=== PATIENT | female | born 1965 | race Caucasian/White ===

== ENCOUNTER 2023-12-13 08:41 | Emergency (ER) | payer OTHER ==
[~2023-12-13] VITALS: Ht 167.6 cm; Wt 68.2 kg
[2023-12-13] MEDS ORDERED: TRAZ-252 PO (08:53)
[2023-12-13 08:55] VITALS: TEMP 98
[2023-12-13] MEDS ORDERED: KETOROLAC TROMETHAMINE 60 MG/2 ML VIAL IM ONE (10:15)
[2023-12-13] MEDS ORDERED: CLINDAMYCIN HCL 150 MG CAPSULE PO ONE (10:15)
[2023-12-13] MEDS ORDERED: CLIN300C58 PO (10:40)
[2023-12-13] MEDS ORDERED: IBUP-1492 PO (10:41)
[2023-12-13 11:03] VITALS: BP 118/70; PULSE 98; RESP 16
== END 2023-12-13 11:41 | disposition home or self-care (01) ==
LOC: EMS 08:41
DX: K04.7 Periapical abscess without sinus (principal); Z98.51 Tubal ligation status; Z98.890 Other specified postprocedural states; Z88.0 Allergy status to penicillin; Z88.2 Allergy status to sulfonamides
CPT/HCPCS: 99283; 96372; J1885